=== PATIENT | male | born 1990 | race Caucasian/White ===

== ENCOUNTER 2018-08-06 14:56 | Emergency (ER) | payer OTHER ==
[~2018-08-06] VITALS: Ht 190.5 cm; Wt 104.3 kg
[2018-08-06] MEDS ORDERED: PREDNISONE20 MG PO ×2 (16:14→16:15)
[2018-08-06] MEDS ORDERED: CYCLOBENZAPRINE10 MG PO (16:14)
== END 2018-08-06 16:28 | disposition home or self-care (01) ==
LOC: ED 14:56
DX: S44.91XA Injury of unspecified nerve at shoulder and upper arm level, right arm, initial encounter (principal); M62.830 Muscle spasm of back; X58.XXXA Exposure to other specified factors, initial encounter; F17.200 Nicotine dependence, unspecified, uncomplicated
CPT/HCPCS: 99283